=== PATIENT | male | born 1960 | race Caucasian/White ===

== ENCOUNTER 2016-12-16 00:48 | Emergency (ER) | payer BC ==
[2016-12-16] MEDS ORDERED: Ketorolac 30 MG/ML SDV IVPUSH ONE (00:51)
--- NOTE | 2016-12-16 00:58 | EDM.PDOC ---
ED HPI GENERAL MEDICAL PROBLEM - General Stated Complaint: FLANK PAIN Time Seen by Provider: 12/16/16 00:48 Source of Information: Reports: Patient, Family History Limitations: Reports: Other (flank pain) - History of Present Illness INITIAL COMMENTS - FREE TEXT/NARRATIVE: 56 years old w m came to the ed due to acute onset of r flank pain with his . Pt denied K stones in the past. Pt denied trauma. Has N/V. Onset: Today, Sudden Onset Date: 12/16/16 Onset Time: 00:00 Duration: Minutes:, Getting Worse Location: Reports: Abdomen Quality: Reports: Ache, Burning, Dull, Pressure, Sharp, Stabbing, Throbbing Severity: Severe Improves with: Reports: Immobilization Worsens with: Reports: Movement Associated Symptoms: Reports: No Other Symptoms Right Flank Pain Score (Numeric/FACES): 10 - Related Data Allergies Allergy/AdvReac Type Severity Reaction Status Date / Time No Known Allergies Allergy Verified 06/02/14 18:46 Home Meds: Home Meds Acetaminophen/oxyCODONE [Percocet 325-5 MG] 1 each PO Q4HR PRN #20 tab 12/16/16 [Rx] Tamsulosin [Tamsulosin 24 Hr] 0.4 mg PO DAILY #4 cap.er 12/16/16 [Rx] Social & Family History - Tobacco Use Smoking Status *Q: Never Smoker Second Hand Smoke Exposure: No - Alcohol Use Days Per Week of Alcohol Use: 0 - Recreational Drug Use Recreational Drug Use: No ED ROS GENERAL - Review of Systems Review Of Systems: See Below Constitutional: Reports: No Symptoms HEENT: Reports: No Symptoms Respiratory: Reports: No Symptoms Cardiovascular: Reports: No Symptoms Endocrine: Reports: No Symptoms GI/Abdominal: Reports: Nausea, Vomiting : Reports: Flank Pain (Right) Musculoskeletal: Reports: No Symptoms Skin: Reports: No Symptoms Neurological: Reports: No Symptoms Psychiatric: Reports: No Symptoms Hematologic/Lymphatic: Reports: No Symptoms Immunologic: Reports: No Symptoms ED EXAM, GI/ABD - Physical Exam Exam: See Below Exam Limited By: Other (flank pain) General Appearance: Alert, WD/WN, Moderate Distress, Obese Eyes: Bilateral: Normal Appearance Ears: Normal External Exam Nose: Normal Inspection Throat/Mouth: Other (dry mucosal membrane) Head: Atraumatic, Normocephalic Neck: Normal Inspection, Supple, Non-Tender Respiratory/Chest: No Respiratory Distress, Lungs Clear, Normal Breath Sounds Cardiovascular: Normal Peripheral Pulses GI/Abdominal: Normal Bowel Sounds (Male) Exam: Deferred Rectal (Males) Exam: Deferred Back Exam: Normal Inspection, CVA Tenderness (R) Extremities: Normal Inspection, Normal Range of Motion, Non-Tender, No Pedal Edema Neurological: Alert, Oriented, CN II-XII Intact, Normal Cognition, Other (could not walk because of pain.) Psychiatric: Normal Affect Skin Exam: Warm, Dry, Intact, Normal Color, No Rash Lymphatic: No Adenopathy Course - Vital Signs Text/Narrative:: 56 years old w m came to the ed due to acute onset of r flank pain with his . Pt denied K stones in the past. Pt denied trauma. Has N/V. PE: Obese, r fank pain Lab; CBC, BMP pending UA Imaging: CT abd.pelvis: urolithiasis at r UVJ mild hydro, Constipation ascending colon Impression: Urolithiasis with hydro at the R UVJ Tx: Toradol, Dilaudid, NS Flomax, Percocet Reexam: improved Plan: D/C with instructions Last Recorded V/S: Last Vital Signs Temp 36.4 C 12/16/16 00:50 Pulse 82 12/16/16 00:50 Resp 18 12/16/16 00:50 BP 134/77 12/16/16 00:50 Pulse Ox 100 12/16/16 00:50 - Orders/Labs/Meds Orders: Active Orders 24 hr Category Date Time Status Abdomen Pelvis wo Cont [CT] Stat Exams 12/16/16 00:51 Taken UA W/MICROSCOPIC [URIN] Stat Lab 12/16/16 00:51 Ordered Labs: Laboratory Tests 12/16/16 12/16/16 12/16/16 Range/Units 01:09 01:09 01:09 WBC 6.9 (4.5-12.0) X10-3/uL RBC 4.61 (4.30-5.75) x10(6)uL Hgb 13.6 (11.5-15.5) g/dL Hct 39.8 (30.0-51.3) % MCV 86.2 (80-96) fL MCH 29.4 (27.7-33.6) pg MCHC 34.1 (32.2-35.4) g/dL RDW 12.7 (11.5-15.5) % Plt Count 389 H (125-369) X10(3)uL MPV 7.3 L (7.4-10.4) fL Neut % (Auto) 51.3 (46-82) % Lymph % (Auto) 36.9 (13-37) % [place] % (Auto) 9.8 (4-12) % Eos % (Auto) 1 (1.0-5.0) % Baso % (Auto) 1 (0-2) % Neut # (Auto) 3.5 (1.6-8.3) # Lymph # (Auto) 2.5 (0.6-5.0) # [place] # (Auto) 0.7 (0.0-1.3) # Eos # (Auto) 0.1 (0.0-0.8) # Baso # (Auto) 0.1 (0.0-0.2) # PT 9.9 (8.7-11.1) INR 0.98 (0.89-1.13) Sodium 140 (135-145) mmol/L Potassium 3.7 (3.5-5.3) mmol/L Chloride 105 (100-110) mmol/L Carbon Dioxide 27 (23-29) mmol/L BUN 14 (5-20) mg/dL Creatinine 1.0 (0.6-1.3) mg/dL Est Cr Clr Drug Dosing TNP Estimated GFR (MDRD) > 60 (>60) BUN/Creatinine Ratio 14.0 (9-20) Glucose 189 H (80-116) mg/dL Calcium 9.4 (8.6-10.2) mg/dL Meds: Medications Discontinued Medications Generic Name Dose Route Start Last Admin Trade Name Freq PRN Reason Stop Dose Admin Hydromorphone HCl 1 mg 12/16/16 01:00 12/16/16 01:13 Dilaudid IVPUSH 12/16/16 01:01 1 mg ONETIME STA Administration Sodium Chloride 1,000 mls @ 999 mls/hr 12/16/16 01:05 12/16/16 01:28 Normal Saline IV 12/16/16 02:05 999 mls/hr .BOLUS ONE Administration Ketorolac Tromethamine 30 mg 12/16/16 00:51 12/16/16 01:00 Toradol IVPUSH 12/16/16 00:52 30 mg ONETIME ONE Administration Magnesium Citrate 296 ml 12/16/16 01:38 Citrate Of Magnesia PO 12/16/16 01:39 ONETIME ONE Ondansetron HCl 8 mg 12/16/16 01:01 12/16/16 01:05 Zofran IVPUSH 12/16/16 01:02 8 mg ONETIME ONE Administration Ondansetron HCl Confirm 12/16/16 01:00 12/16/16 01:14 Zofran Administered 12/16/16 01:01 Not Given Dose 8 mg .ROUTE .STK-MED ONE Oxycodone/Acetaminophen 1 tab 12/16/16 02:11 Percocet 325-5 Mg PO 12/16/16 02:12 ONETIME STA Tamsulosin HCl 0.4 mg 12/16/16 02:11 Flomax PO 12/16/16 02:12 ONETIME ONE Departure - Departure Time of Disposition: 02:31 Disposition: Home, Self-Care 01 Condition: good Clinical Impression: Urolithiasis Qualifiers: Urinary calculus location: kidney and ureter Qualified Code(s): N20.2 - Calculus of kidney with calculus of ureter Constipation Qualifiers: Constipation type: unspecified constipation type Qualified Code(s): K59.00 - Constipation, unspecified - Discharge Information Prescriptions: Acetaminophen/oxyCODONE [Percocet 325-5 MG] 1 each PO Q4HR PRN #20 tab PRN Reason: severe pain Tamsulosin [Tamsulosin 24 Hr] 0.4 mg PO DAILY #4 cap.er Additional Instructions: Please screen your urine with a funnel, cut down on meat meals, take flomax and percocet as recommended, please F/U with Urology, please come back if your symptoms get worse acutely. - My Orders Last 24 Hours: My Active Orders 12/16/16 00:51 Abdomen Pelvis wo Cont [CT] Stat UA W/MICROSCOPIC [URIN] Stat - Assessment/Plan Last 24 Hours: My Active Orders 12/16/16 00:51 Abdomen Pelvis wo Cont [CT] Stat UA W/MICROSCOPIC [URIN] Stat
[2016-12-16] MEDS ORDERED: Ondansetron 4 MG/2 ML SDV ONE (01:00)
[2016-12-16] MEDS ORDERED: HYDROmorphone 2 MG/ML SDV IVPUSH STA (01:00)
[2016-12-16] MEDS ORDERED: Ondansetron 4 MG/2 ML SDV IVPUSH ONE (01:01)
[2016-12-16] MEDS ORDERED: Sodium Chloride 0.9% 1,000 ML IV ONE (01:05)
[2016-12-16] MEDS ORDERED: Magnesium Citrate Solution 296 ML Bottle PO ONE (01:38)
[2016-12-16] MEDS ORDERED: Tamsulosin 0.4 MG Cap.ER PO ONE (02:11)
[2016-12-16] MEDS ORDERED: Acetaminophen/oxyCODONE 325-5 MG Tab PO STA (02:11)
[2016-12-16 02:38] VITALS: BP 133/71
== END 2016-12-16 03:10 | disposition home or self-care (01) ==
LOC: FB.ED 00:48
DX: N20.2 Calculus of kidney with calculus of ureter (principal); K59.00 Constipation, unspecified; Z79.899 Other long term (current) drug therapy
CPT/HCPCS: 36415; 74176; 80048; 81001; 85025; 85610; 96361; 96374; 96375; 99284; A9270; J1170; J1885; J2405; J7040